=== PATIENT | female | born 1940 | race Two or more races ===

== ENCOUNTER 2023-05-06 12:28 | Emergency (ER) | payer OTHER ==
[~2023-05-06] VITALS: Ht 165.1 cm; Wt 54.4 kg
[2023-05-06] MEDS ORDERED: COZAAR50 MG PO (12:46)
[2023-05-06] MEDS ORDERED: PLAVIX75 MG PO (12:46)
[2023-05-06] MEDS ORDERED: FAMOtidine 10 MG/ML (4ML VIAL) IV STA (13:52)
[2023-05-06] MEDS ORDERED: ALPRAzolam 1 MG TABLET PO STA (13:52)
[2023-05-06 14:18] LABS: HEMATOCRIT 45.3 % (36.0-45.00); HEMOGLOBIN 15.6 g/dL (12.0-15.00); MEAN CELL VOLUME 91.2 fL (80.00-100.00); MEAN CORPUSCULAR HEMOGLOBIN 31.4 pg (27.00-32.0); MEAN CORPUSCULAR HGB CONC 34.5 g/dl (32.0-36.0); RED BLOOD COUNT 4.97 M/uL (4.00-6.00); RED CELL DISTRIBUTION WIDTH 13.8 % (11.5-14.5)
[2023-05-06 14:26] LABS: PH,URINE 6.5 (5.0-8.0); URINE APPEARANCE Clear; URINE BILIRRUBIN Negative (NEGATIVE); URINE BLOOD Negative; URINE COLOR Yellow; URINE GLUCOSE Negative (NEGATIVE); URINE LEUKOCYTE Trace; URINE NITRATE Negative; URINE PROTEIN Negative (NEGATIVE); URINE UROBILINOGEN 0.2 E.U./dl
[2023-05-06 14:30] LABS: URINE BACTERIA 76.7 uL (0.0-1933); URINE EPITHELIAL CELLS 2.9 uL (0.0-38.8); URINE RBC 2.5 uL (0.0-20.8)
[2023-05-06 14:34] LABS: CALCIUM 9.8 mg/dL (8.5-10.1); CREATININE SERUM 0.66 mg/dL (0.55-1.02); GFR 85.53; POTASSIUM 3.98 mEq/L (3.5-5.1)
[2023-05-06 14:46] LABS: PLATELET COUNT 159 K/uL (150-450)
== END 2023-05-06 16:23 | disposition home or self-care (01) ==
LOC: ER 12:29
PROVIDERS: General Practice
DX: R11.10 Vomiting, unspecified (principal); I10 Essential (primary) hypertension; E11.9 Type 2 diabetes mellitus without complications; Z85.89 Personal history of malignant neoplasm of other organs and systems; F41.8 Other specified anxiety disorders